=== PATIENT | male | born 1955 | race Caucasian/White ===

== ENCOUNTER 2022-01-08 06:40 | Outpatient (CLI) | payer MEDICARE, OTHER, SELFPAY ==
--- NOTE | ~2022-01-08 | MR_ITS ---
EXAMINATION: MR knee RT wo con DATE: 01/08/2022 07:29 INDICATION: Right knee pain TECHNIQUE: Magnetic resonance imaging (MRI) of the right knee was performed without intravenous contr ast. Sequences included coronal PD-weighted FSE, coronal PD-weighted FS FSE, sagittal T2-weighted FS E, sagittal PD-weighted FS FSE and axial PD weighted fat saturated FSE. COMPARISON: None. FINDINGS: Medial compartment: Full-thickness radial tear extending across the posterior horn of the medial meniscus. Shallow chondr al fissuring at the lateral aspect of the anterior weightbearing medial femoral condyle. Articular ca rtilage is otherwise normal. Lateral compartment: Lateral meniscus is normal. Articular cartilage is normal. Patellofemoral compartment: Deep patellar chondral fissuring with small regions of underlying subarticular edema-like signal stubbs ge at both the medial and lateral facets, the former with additional small central subchondral osteop hyte. Full-thickness chondral ulceration with underlying cortical irregularity both cystlike and abbey a-like subarticular changes at the inferior aspect of the lateral patellar facet and with central sub chondral osteophytes and additional some reticular edema-like signal change at the trochlear groove a nd small portion of the inferolateral aspect of the medial trochlea. Ligaments and tendons: Anterior and posterior cruciate ligaments are normal. The medial collateral ligament and fibular eva ateral ligament complex are normal. Patellar tendon is normal. Mild distal quadriceps tendinopathy wi thout tear. The visualized medial and lateral hamstring tendons as well as the iliotibial band are no rmal. Fluid: Physiologic amount of fluid in the joint space. No loose osteochondral bodies identified. 4.9 x 1.8 x 0.8 cm Tam's cyst. Osseous/other: Aside from the degenerative subarticular marrow signal changes there is normal marrow signal. No frac ture or pathologic marrow replacing process. IMPRESSION: 1. Full-thickness radial tear at the posterior horn of the medial meniscus. 2. 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 3. Mild osteoarthritis in medial compartment with moderate grade chondral malacia along the anterior weightbearing medial femoral condyle. 4. Moderate-sized Tam's cyst. Reviewed, dictated and finalized at location A. IMPRESSION: 1. Full-thickness radial tear at the posterior horn of the medial meniscus. 2. 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 3. Mild osteoarthritis in medial compartment with moderate grade chondral malac ia along the anterior weightbearing medial femoral condyle. 4. Moderate-sized Tam's cyst.
== END 2022-01-08 06:41 | disposition home or self-care (01) ==
LOC: ANHIMG 06:45
PROVIDERS: PCP Family Medicine; Visit Provider Orthopaedic Surgery
DX: M71.21 Synovial cyst of popliteal space [Baker], right knee (principal); M17.11 Unilateral primary osteoarthritis, right knee; S83.241A Other tear of medial meniscus, current injury, right knee, initial encounter; X58.XXXA Exposure to other specified factors, initial encounter
CPT/HCPCS: 73721